=== PATIENT | male | born 1990 | race Caucasian/White ===

== ENCOUNTER 2017-10-29 05:11 | Emergency (ER) | payer MEDICAID, OTHER ==
[2017-10-29] MEDS: LORAZEPAM 2 MG INJ IM (05:15)
[2017-10-29] MEDS ORDERED: LORAZEPAM 2 MG INJ ×2 (05:15→20:12)
[2017-10-29] MEDS: SOD CHLORIDE 0.9% 1,000 ML IV ×2 (06:33→08:40)
[2017-10-29 06:46] LABS: ANION GAP 26 (8-16); BLOOD UREA NITROGEN 9 mg/dl (7-20); CALCIUM 9.6 mg/dl (8.4-10.2); CARBON DIOXIDE 18 mmol/L (21-31); CHLORIDE 113 mmol/L (97-110); GLUCOSE 115 mg/dl (70-220); POTASSIUM 3.6 mmol/L (3.5-5.1); SODIUM 153 mmol/L (135-144)
[2017-10-29] MEDS: SOD CHLORIDE 0.9% 100 ML (08:01)
[2017-10-29] MEDS: IOHEXOL 300MG/ML 150 ML BTL (08:01)
== END 2017-10-29 11:19 | disposition home or self-care (01) ==
LOC: E/R 05:11
DX: S39.81XA Other specified injuries of abdomen, initial encounter (principal); F10.920 Alcohol use, unspecified with intoxication, uncomplicated; F17.210 Nicotine dependence, cigarettes, uncomplicated; R93.0 Abnormal findings on diagnostic imaging of skull and head, not elsewhere classified; Y04.8XXA Assault by other bodily force, initial encounter
CPT/HCPCS: 70450; 74177; 80048; 80307; 93005; 96360; 96372; 99285-25